=== PATIENT | female | born 1950 ===

== ENCOUNTER 2020-08-29 09:13 | Observation (INO) | payer MEDICARE, BC ==
[~2020-08-29] VITALS: Ht 167.6 cm; Wt 61.1 kg
--- NOTE | 2020-08-29 09:28 | NUR ---
PT TO ROOM FROM TRIAGE, CHANGED INTO GOWN. SPOUSE AT BS. PER SPOUSE PT CONFUSED SINCE 829 THIS AM. SPOUSE STATES COUGH 1XMONTH AGO, ON STEROIDS & ANTIBX. PT AX0X2. NO DEFICITS NOTED. PT PASSED SWALLOW SCREEN. CALL LIGHT WITHIN REACH
--- NOTE | 2020-08-29 11:02 | NUR ---
PT TO CT
[2020-08-29 11:08] LABS: MICROSCOPIC AUTO
[2020-08-29 11:12] LABS: BASOPHILS % (AUTO) 1 % (0-1); EOSINOPHILS % (AUTO) 3 % (1-7); LYMPHOCYTES % (AUTO) 37 % (22-44); MEAN CORPUSCULAR HEMOGLOBIN 31.8 pg (27.0-34.8); MEAN CORPUSCULAR HGB CONC 33.7 g/dL (32.4-35.8); MEAN PLATELET VOLUME 7.8 fL (7.4-10.4); MONOCYTES % (AUTO) 10 % (2-9); NEUTROPHILS % (AUTO) 49 % (42-75); PLATELET COUNT 290 x10^3/uL (130-400); RED CELL DISTRIBUTION WIDTH 13.9 % (9.6-15.2)
--- NOTE | 2020-08-29 11:12 | NUR ---
PT BACK FROM CT, MONITORS IN PLACE. CALL LIGHT WITHIN REACH
[2020-08-29 11:17] LABS: CHLORIDE 104 mmol/L (98-107)
--- NOTE | 2020-08-29 11:18 | NUR ---
PT SITTING ON GAGAN JORGE/GTS. SPOUSE AT BS. CALL LIGHT WITHIN REACH. BED RAILS UP X2. NO NEEDS AT THIS TIME
[2020-08-29 11:22] LABS: ALANINE AMINOTRANSFERASE 26 U/L (12-78); ALKALINE PHOSPHATASE 114 U/L (45-117); ANION GAP 6 mmol/L (5-15); BILIRUBIN,TOTAL 0.6 mg/dL (0.2-1.0); CALCIUM 8.7 mg/dL (8.5-10.1); CREATININE 0.88 mg/dL (0.55-1.02); TOTAL PROTEIN 7.3 g/dL (6.4-8.2)
[2020-08-29] MEDS ORDERED: FOSFOMYCIN 3 GM PACKET ONE (12:17)
[2020-08-29] MEDS ORDERED: ASPIRIN 325 MG TABLET PO ONE (12:30)
[2020-08-29] MEDS ORDERED: FOSFOMYCIN 3 GM PACKET PO ONE (12:30)
[2020-08-29] MEDS ORDERED: ASPIRIN 325 MG TABLET ONE (12:33)
[2020-08-29] MEDS ORDERED: ACETAMINOPHEN 325 MG TABLET PO PRN (13:00)
[2020-08-29] MEDS ORDERED: BUTALB/APAP/CAFFEINE 50MG/325MG/40MG PO PRN ×2 (13:00)
[2020-08-29] MEDS ORDERED: ONDANSETRON 2MG/ML, 2ML IVPush PRN (13:00)
[2020-08-29] MEDS ORDERED: ONDANSETRON ODT 4 MG PO PRN (13:00)
--- NOTE | 2020-08-29 13:00 | NUR ---
Pt to be admitted to [facility], room 403. Report called to BETSY.
[2020-08-29 13:40] VITALS: BP 168/76
[2020-08-29 14:28] VITALS: BP 168/76
[2020-08-29] MEDS ORDERED: MELATONIN 5 MG TABLET PO SCH (21:00)
[2020-08-30] MEDS ORDERED: ASPIRIN 325 MG TABLET EC PO SCH (06:00)
== END 2020-08-29 18:35 | disposition home or self-care (01) ==
LOC: ED 11:45 → INTOOBSV 12:27 → EDIP 12:27 → 4WST 13:24
PROVIDERS: ADMIT Hospitalist; ATTEND Hospitalist
DX: R41.82 Altered mental status, unspecified (principal); R41.3 Other amnesia; N30.90 Cystitis, unspecified without hematuria; Z79.899 Other long term (current) drug therapy
CPT/HCPCS: 36415; 70450; 70551; 80053; 81001; 85025; 87086; 93005; 99285; G0378